=== PATIENT | female | born 1965 | race Caucasian/White ===

== ENCOUNTER 2016-09-29 18:01 | Inpatient (IN) | payer BC ==
--- NOTE | ~2016-09-29 | PN ---
Unit #: [id number] #: [id number] Patient: KYLER JOHN [id number] [facility] [address] [place] [address] [id number] MR#: [id number] NAME: KYLER JOHN ROOM: [facility] Age: 51 Sex: F Admission Date: 09/29/2016 : 1965 Attending Physician: Jose Ramon Catalan M.D. Admitting Physician: Jose Ramon Catalan M.D. Primary Care Physician: Generic Doctor Not In System [facility] PROGRESS NOTES DATE OF SERVICE 10/02/2016 DISCUSSION Ms. Kyler John is a 51-year-old female seen on 10/02/2016. The patient interviewed, chart reviewed. Obtained information from nursing staff. The patient reported that she is not feeling good. Still having a lot of anxiety, restlessness, trouble balancing, severe anxiety, feeling of cold, clammy. The patient reports she was doing better yesterday, but today having problems. Vital Signs: Pulse 104, blood pressure 105/76, afebrile. Complete Review of Systems: Unremarkable. MENTAL STATUS EXAMINATION General Appearance: The patient dressed casually. Attention span, concentration: Fair. Oriented in place and person. Mood and affect labile. Speech: Slow. Thought process: Circumstantial. The patient denied any thoughts of harming self or others but anxious, nervous, withdrawn, isolative, guarded. Reported trouble balancing. Recent and remote memory: Poor. Insight and judgment: Poor. DIAGNOSES 1. Alcohol use disorder, severe. 2. Mood disorder not otherwise specified. ASSESSMENT/PLAN Advised to continue with current detox protocol. Detox monitoring. If needed, consider further adjustment of medication. Continuing with the inpatient programming at this time. Dictated by... Georgette Terrazas/lor TD: 10/04/2016 10:12 JOB #: [id number] Unit #: [id number] #: [id number] Patient: KYLER JOHN PROGRESS NOTES X Jose Ramon Catalan MD X PROGRESS NOTE
--- NOTE | ~2016-09-29 | PN ---
Unit #: [id number] #: [id number] Patient: KYLER JOHN [id number] [facility] [address] [place] [address] [id number] I MR#: [id number] NAME: KYLER JOHN ROOM: [facility] Age: 51 Sex: F Admission Date: 09/29/2016 : 1965 Attending Physician: Jose Ramon Catalan M.D. Admitting Physician: Jose Ramon Catalan M.D. Primary Care Physician: Generic Doctor Not In System [facility] PROGRESS NOTES DATE 10/05/2016. DISCUSSION Ms. Kyler John is a 51-year-old female seen on 10/05/2016. The patient was interviewed and chart reviewed. Obtained information from the nursing staff. The patient reported feeling better. Decrease in anxiety and withdrawal symptoms. The patient is able to eat good. Still isolative and guarded. Complete review of systems unremarkable. MENTAL STATUS EXAMINATION General appearance, the patient is dressed casually. Attention and concentration fair. Oriented to person and place. Mood and affect sad and dysphoric. Speech regular rate. Thought process goal directed. Denied any thoughts of harming self or others. No psychotic symptoms. Recent and remote memory poor. Insight and judgment poor. DIAGNOSES 1. Mood disorder, NOS. 2. Alcohol use disorder, severe. ASSESSMENT/PLAN Advised to continue with current medications and therapy protocol. Make further adjustments of medication if needed. Dictated by... Georgette Terrazas/haleigh TD: 10/06/2016 16:26 JOB #: [id number] Unit #: [id number] #: [id number] Patient: KYLER JOHN [facility] PROGRESS NOTES X Jose Ramon Catalan MD PROGRESS NOTE
--- NOTE | ~2016-09-29 | PN ---
Unit #: [id number] #: [id number] Patient: KYLER JOHN [id number] [facility] [address] [place] [address] [id number] I MR#: [id number] NAME: KYLER JOHN ROOM: [facility] Age: 51 Sex: F Admission Date: 09/29/2016 : 1965 Attending Physician: Jose Ramon Catalan M.D. Admitting Physician: Jose Ramon Catalan M.D. Primary Care Physician: Generic Doctor Not In System [facility] PROGRESS NOTES DATE 10/03/2016 DISCUSSION Ms. Kyler John is a 51-year-old female seen on 10/03/2016. The patient interviewed, chart reviewed; obtained information from nursing staff. Patient currently detoxing from alcohol, still reporting anxious, nervous, hand tremors, some problems with balance. The patient's vital signs are 87, 107/70, 98.8. Complete review of systems unremarkable. MENTAL STATUS EXAMINATION General appearance: Patient dressed casually. Attention span and concentration fair. Oriented in place and person. Mood and affect sad/dysphoric. Speech monotone. Thought processes concrete. The patient denied any thoughts of harming self or others, but sad, depressed, withdrawn, isolative. Recent and remote memory poor. Insight and judgment poor. DIAGNOSIS 1. Alcohol use disorder, severe 2. Mood disorder, NOS ASSESSMENT/PLAN Advised to continue with the current medication and therapy protocol. We will monitor response to medication and make further adjustment of medication. Dictated by... Georgette Terrazas/kendra TD: 10/05/2016 09:21 JOB #: [id number] Unit #: [id number] #: [id number] Patient: KYLER JOHN [facility] PROGRESS NOTES X Jose Ramon Catalan MD PROGRESS NOTE
--- NOTE | ~2016-09-29 | PA ---
Unit #: [id number] #: [id number] Patient: KYLER JOHN [id number] [facility] [address] [place] [address] [id number] I MR#: [id number] NAME: KYLER JOHN ROOM: 76 Age: 51 Sex: F Admission Date: 09/29/2016 : 1965 Date of Assessment: Attending Physician: Jose Ramon Catalan M.D. Admitting Physician: Jose Ramon Catalan M.D. Primary Care Physician: Generic Doctor Not In System PSYCHIATRIC ASSESSMENT DATE OF SERVICE 09/29/2016. INFORMANTS The patient reliability, fair informant and chart reliability, good. CHIEF COMPLAINT Alcohol detox. HISTORY OF PRESENT ILLNESS Ms. Kyler Soni is a 51-year-old female, seen on . The patient presented with the above-mentioned complaint. The patient reported using alcohol almost on a daily basis. The patient lives at home with two sons, 15 and 19. The patient reported feeling sad, depressed, and alcohol use. Reports drinking two glasses of wine this morning and currently going through withdrawal. The patient reports that she typically drinks about two bottles of wine per day. The patient currently denied any suicidal or homicidal ideation, but reported feeling sad and depressed. The patient reports age of onset of alcohol 49. Denied any use of other drugs. The patient reported history of blackout. No history of any HIV or hepatitis, but history of withdrawal symptoms. No history of any IV drug use. Currently, complaining of abdominal cramping, headache, restlessness, tremor, sad, and depressed. PAST PSYCHIATRIC HISTORY Remarkable for history of outpatient treatment for depression. History of treatment inpatient at [facility] in 04/2016. FAMILY HISTORY/SOCIAL HISTORY The patient has good support from family. Family psychiatric illness is unknown, but according to the intake report history of alcoholism on the paternal side of the family. SOCIAL HISTORY No history of any abuse. MEDICAL HISTORY Remarkable for history of hypertension and atrial fibrillation. MEDICATIONS The patient is on Eliquis 5 mg q.12 hours, Effexor XR 150 mg daily, and Toprol-XL 100 mg daily. Unit #: [id number] #: [id number] Patient: KYLER JOHN ALLERGIES No known drug allergies. SUBSTANCE ABUSE HISTORY Please see above. REVIEW OF SYSTEMS HEENT: Eyes, clear. Ears, nose, mouth, and throat; clear. CARDIOVASCULAR: Unremarkable. RESPIRATORY: Unremarkable. GI: Unremarkable. : Unremarkable. SKIN: Unremarkable. LYMPH NODE: Unremarkable. NEUROLOGIC: Unremarkable. ENDOCRINE: Unremarkable. HEMATOLOGIC: Unremarkable. ALLERGIC/IMMUNOLOGIC: Unremarkable. MUSCULOSKELETAL: Muscle strength and tone, no atrophy or abnormal movement. Gait normal. MENTAL STATUS EXAMINATION CONSTITUTIONAL: Measurement of vital signs; temperature 98.7, heart rate 97, respiratory rate 17, blood pressure 130/78, height 5 feet 2 inches, and weight 156 pounds. GENERAL APPEARANCE: The patient dressed casually. The patient did not show any facial deformity. MUSCULOSKELETAL: Please see above. PSYCHIATRIC EXAMINATION Description of speech; regular rate, normal volume, normal articulation, coherent, and spontaneous. Description of thought process, goal directed. Description of association, intact. Description of abnormal psychotic thinking; the patient denied any hallucinations or delusions, but mood lability, depression, and substance abuse. Description of the patient's judgment, concerning everyday activity, poor. Social situation, poor. Concerning psychiatric condition, poor. Complete mental status examination; oriented in time, place, and person. Recent and remote memory, fair. Attention span and concentration, fair. Language, able to name object and repeat phrases. Fund of knowledge, aware of current event and passive vocabulary intact. Mood and affect, sad and dysphoric. Insight and judgment, fair to poor. ASSETS AND LIABILITIES Assets, the patient is articulate and able to take care of her ADL. Liability, history of depression and substance abuse. ADMITTING DIAGNOSES Psychiatric: Alcohol use disorder, severe, F10.20 and mood disorder, not otherwise specified, F32.9. Secondary diagnosis: Deferred. Medical diagnosis: Atrial fibrillation and hypertension. Stressors: Psychosocial stressors. Unit #: [id number] #: [id number] Patient: KYLER JOHN PSYCHIATRIC PLAN AND TREATMENT GOAL AND DISCHARGE PLAN 1. Advised to admit the patient on the inpatient unit. Provide safe, supportive, and structured environment. 2. Ordered labs; CBC, CMP, UA, UDS, T4, TSH, RPR, and EKG. 3. Advised to continue with current medication and detox protocol and detox monitoring. The patient to attend all the programing, group therapy, individual therapy, and medication management. TREATMENT GOAL To attain euthymic mood, gain insight into her problem, and learn coping skills. DISCHARGE PLAN Plan to stabilize the patient and consider followup in outpatient program. ESTIMATED LENGTH OF STAY 5 to 7 days. Dictated by... Georgette Terrazas/nicko TD: 09/30/2016 16:10 JOB #: [id number] PSYCHIATRIC ASSESSMENT X Jose Ramon Catalan MD PSYCHIATRIC ASSESSMENT
--- NOTE | ~2016-09-29 | PN ---
Unit #: [id number] #: [id number] Patient: KYLER JOHN [id number] [facility] [address] [place] [address] [id number] MR#: [id number] NAME: KYLER JOHN ROOM: [facility] Age: 51 Sex: F Admission Date: 09/29/2016 : 1965 Attending Physician: Jose Ramon Catalan M.D. Admitting Physician: Jose Ramon Catalan M.D. Primary Care Physician: Generic Doctor Not In System [facility] PROGRESS NOTES DATE 10/04/2016. DISCUSSION Ms. Kyler John is a 51-year-old female seen on 10/04/2016. The patient was interviewed and chart reviewed. Obtained information form the nursing staff. The patient was compliant and cooperative. Mood sad and dysphoric. The patient reported feeling better. Still having some withdrawal symptoms. Complete review of systems unremarkable. MENTAL STATUS EXAMINATION The patient was dressed casually. Attention and concentration poor. Mood sad and dysphoric. Isolative and guarded. Speech regular rate. Thought process goal directed. The patient denied any thoughts of harming self or others. No psychotic symptoms. Recent and remote memory poor. Insight and judgment poor. DIAGNOSIS Alcohol use disorder, severe. ASSESSMENT/PLAN Continue with current medications and therapy protocol. Will monitor response to medication and make further adjustments in medication. Dictated by... Georgette Terrazas/haleigh TD: 10/06/2016 16:22 JOB #: [id number] [facility] PROGRESS NOTES X Jose Ramon Catalan MD PROGRESS NOTE
--- NOTE | ~2016-09-29 | PN ---
Unit #: [id number] #: [id number] Patient: KYLER JOHN [id number] [facility] [address] [place] [address] [id number] I MR#: [id number] NAME: KYLER JOHN ROOM: [facility] Age: 51 Sex: F Admission Date: 09/29/2016 : 1965 Attending Physician: Jose Ramon Catalan M.D. Admitting Physician: Jose Ramon Catalan M.D. Primary Care Physician: Aracely Doctor Not In System [facility] PROGRESS NOTES DATE OF SERVICE: 10/06/2016 DISCUSSION Ms. Kyler John is a 51-year-old female, seen on 10/06/2016. The patient interviewed, chart reviewed, and obtained information from nursing staff. The patient was scheduled to be discharged today, but reported that having suicidal thoughts. The patient was unable to contract for safety. Subsequently, her discharge was canceled as the patient was unable to contract for safety. The patient reported feeling sad, depressed, and anxious. Denied any specific plan. Vital signs stable. Compliant with medication. Complete review of systems unremarkable. MENTAL STATUS EXAMINATION General appearance, the patient dressed casually. Attention span and concentration, fair. Oriented in place and person. Mood and affect, sad and dysphoric. Speech, regular rate. Thought process, goal directed. The patient denied any thoughts of harming others, but having suicidal thoughts. Unable to contract for safety. Recent and remote memory, poor. Insight and judgment, poor. DIAGNOSES 1. Mood disorder, not otherwise specified. 2. Alcohol use disorder, severe. ASSESSMENT AND PLAN Advised to continue with current medication and therapeutic protocol. We will monitor response to medication and make further adjustment of medication. Dictated by... Georgette Terrazas/nicko TD: 10/07/2016 12:16 JOB #: [id number] Unit #: [id number] #: [id number] Patient: KYLER JOHN PROGRESS NOTES X Jose Ramon Catalan MD PROGRESS NOTE
--- NOTE | ~2016-09-29 | HP ---
Unit #: [id number] #: [id number] Patient: KYLER JOHN [id number] [place] [address] [id number] I MR#: [id number] NAME: KYLER JOHN ROOM: [facility] Age: 51 Sex: F Admission Date: 09/29/2016 : 1965 Attending Physician: Jose Ramon Catalan M.D. Admitting Physician: Jose Ramon Catalan M.D. Primary Care Physician: Generic Doctor Not In System HISTORY AND PHYSICAL HISTORY OF PRESENT ILLNESS Kyler is a 51-year-old female admitted to [facility] because of her abuse of alcohol. She is detoxing. PAST MEDICAL HISTORY 1. Long history of alcohol abuse. 2. High blood pressure. 3. History of atrial fibrillation. PAST SURGICAL HISTORY 1. Gastric bypass. 2. Hysterectomy. 3. Cholecystectomy. ALLERGIES Penicillin, lisinopril, Ceclor. SOCIAL HISTORY She does not smoke, drinks excessively on a daily basis, and denies illicit drug use. FAMILY HISTORY Medically noncontributory. REVIEW OF SYSTEMS CONSTITUTIONAL: No fever or chills. HEENT: Denies any sore throat, ear pain or runny nose. CARDIOVASCULAR: Denies chest pain, irregular heart rhythm or palpitations. CHEST: Denies shortness of breath or cough. No hemoptysis. GASTROINTESTINAL: Denies nausea, vomiting, diarrhea or chronic constipation. ENDOCRINE: Denies history of increased thirst or urination. No recent significant weight loss or gain. GENITOURINARY: Denies dysuria, frequency, or hematuria. SKIN: Denies any rashes. HEMATOLOGIC: Denies history of increased bleeding or bruising. MUSCULOSKELETAL: Denies any hot, swollen joints. No generalized muscle pain. NEUROLOGIC: Denies problems with vision or speech. No frequent, severe headaches. No numbness, tingling or weakness in any extremities. Denies loss of bladder or bowel control. CURRENT MEDICATIONS Unit #: [id number] #: [id number] Patient: KYLER JOHN 1. Detox protocol. 2. Eliquis 5 mg q. 12 hours. 3. Effexor XR 150 mg q. day. 4. Toprol XL 50 mg 2 tabs q. day. PHYSICAL EXAMINATION GENERAL: Alert, well nourished. No apparent distress. VITAL SIGNS: Blood pressure 100/64, heart rate 80, respirations 16, and temperature 98.6. WEIGHT: 166. HEIGHT: 5 feet 2 inches. SKIN: Warm and dry without rash or lesion. HEENT: Normocephalic. TMs not viewed. Oral and nasal passages clear. Conjunctivae clear. PERRLA. EOMs intact. NECK: Supple without lymphadenopathy or thyromegaly. HEART: Regular rate and rhythm without murmur. LUNGS: Clear. ABDOMEN: Soft, nontender. : Not done. EXTREMITIES: No evidence of cyanosis, clubbing or edema. Moves all without focal deficit. NEUROLOGICAL: Grossly within normal limits. Cranial Nerves: II: Visual scanlon are intact. III, IV AND : Extraocular movements are intact. Pupils are equal, round and reactive to light. V: Facial sensation is grossly normal. VII: Facial movements and expression are normal. VIII: Auditory acuity grossly intact. IX, X: Uvula is midline. Phonation is normal. XI: Patient shrugs shoulders and turns head normally. XII: Tongue protrudes in the midline. Sensory and Motor Function: Sensory and motor sensation is grossly normal. Motor: moves all extremities well. Coordination: Gait is normal. Deep Tendon Reflexes: Intact. IMPRESSION Psychiatric admission. RECOMMENDATIONS PSYCHIATRIC: Per psychiatrist. MEDICAL: I see no contraindication to participate in this facility's activities. MEDICAL PROGNOSIS Good. MEDICAL CONDITION Stable. Dictated by... Aide Baugh P.A.-C. for Georgette Butler/lor TD: 10/01/2016 12:01 JOB #: [id number] Unit #: [id number] #: [id number] Patient: KYLER JOHN HISTORY AND PHYSICAL X Aide Baugh HISTORY AND PHYSICAL
--- NOTE | ~2016-09-29 | PN ---
Unit #: [id number] #: [id number] Patient: KYLER JOHN [id number] [facility] [address] [place] [address] [id number] I MR#: [id number] NAME: KYLER JOHN ROOM: [facility] Age: 51 Sex: F Admission Date: 09/29/2016 : 1965 Attending Physician: Jose Ramon Catalan M.D. Admitting Physician: Jose Ramon Catalan M.D. Primary Care Physician: Generic Doctor Not In System [facility] PROGRESS NOTES DATE OF SERVICE: 09/30/2016 DISCUSSION Ms. Kyler Soni is a 51-year-old female, seen on 09/30/2016. The patient interviewed, chart reviewed, and obtained information from nursing staff. The patient was compliant and cooperative. Mood was sad, dysphoric, flat affect. The patient was somewhat anxious, nervous, having withdrawal symptom. Vital signs; temperature 98.6, pulse 95, respirations 17, and blood pressure 127/89. Complete review of systems unremarkable. MENTAL STATUS EXAMINATION General appearance, the patient dressed casually. Attention span and concentration, fair. Oriented in place and person. Mood and affect, sad and dysphoric. Speech, monotone. Thought process, concrete. The patient denied any thoughts of harming self or others or any psychotic symptom. Recent and remote memory, poor. Insight and judgment, poor. DIAGNOSES 1. Alcohol use disorder, severe. 2. Mood disorder, not otherwise specified. ASSESSMENT AND PLAN Advised to continue with current medication and therapeutic protocol. We will monitor response to medication and make further adjustment of medication and continue with detox protocol. Dictated by... Georgette Terrazas/nicko TD: 10/01/2016 16:38 JOB #: [id number] Unit #: [id number] #: [id number] Patient: KYLER JOHN PROGRESS NOTES X Jose Ramon Catalan MD PROGRESS NOTE
--- NOTE | ~2016-09-29 | PN ---
Unit #: [id number] #: [id number] Patient: KYLER JOHN [id number] [facility] [address] [place] [address] [id number] I MR#: [id number] NAME: KYLER JOHN ROOM: [facility] Age: 51 Sex: F Admission Date: 09/29/2016 : 1965 Attending Physician: Jose Ramon Catalan M.D. Admitting Physician: Jose Ramon Catalan M.D. Primary Care Physician: Generic Doctor Not In System [facility] PROGRESS NOTES DATE 10/01/2016 DISCUSSION Ms. John is a 51-year-old female seen on 10/01/2016. The patient continues to report feeling anxious, nervous, withdrawn, tremors, having withdrawal symptoms from alcohol. The patient's vital signs high, pulse 96, blood pressure 160/84. Complete review of systems unremarkable. MENTAL STATUS EXAMINATION General appearance, the patient dressed casually. Attention span and concentration fair. Oriented to place and person. Mood and affect was sad, dysphoric, anxious. Speech regular rate. Thought process goal directed. The patient denied any thoughts of harming self or others. Was sad, depressed, withdrawn, isolative, guarded. Recent and remote memory poor. Insight and judgement poor. DIAGNOSES 1. Alcohol use disorder severe. 2. Mood disorder NOS. ASSESSMENT/PLAN Advise to continue with current medication and therapeutic protocol. We will monitor response to medication and make further adjustment of medication. Dictated by... Georgette Terrazas/dex TD: 10/03/2016 01:05 JOB #: [id number] Unit #: [id number] #: [id number] Patient: KYLER JOHN PROGRESS NOTES X Jose Ramon Catalan MD PROGRESS NOTE
--- NOTE | ~2016-09-29 | DS ---
Unit #: [id number] #: [id number] Patient: KYLER JOHN [id number] [place] [address] [id number] I MR#: [id number] NAME: KYLER JOHN ROOM: [facility] Age: 51 Sex: F Admission Date: 09/29/2016 : 1965 Discharge Date: 10/08/2016 Attending Physician: Jose Ramon Catalan M.D. Primary Care Physician: Generic Doctor Not In System DISCHARGE SUMMARY REASON FOR ADMISSION Alcohol detox and depression. DIAGNOSTIC STUDIES LABORATORY RESULTS: Unremarkable except glucose 65, AST 74, and ALT 41. HOSPITAL COURSE The patient was admitted to inpatient unit on 09/29/2016 and discharged on 10/08/2016. The patient was treated on the inpatient unit with group therapy, individual therapy, medication management, chemical dependency group, detox protocol, and detox monitoring. Subsequently, the patient was discharged home with a plan to follow up in outpatient program as the patient showed improvement. The patient had problem with depression close to discharge and Celexa was added, responded well with Celexa and Vistaril. Subsequently, the patient was discharged. DISCHARGE MEDICATIONS Celexa 20 mg daily for depression and Vistaril 25 mg t.i.d. for anxiety. The patient is to continue with her medications; Toprol-XL for hypertension, Effexor XR 150 mg daily for depression, and Eliquis to prevent blood clots. DISCHARGE DIAGNOSES Psychiatric: 1. Alcohol use disorder, severe, F10.20. 2. Mood disorder, not otherwise specified, F32.9. Secondary diagnosis: Deferred. Medical diagnoses: Atrial fibrillation, hypertension. Stressors: Psychosocial stressors. DISCHARGE INSTRUCTIONS The patient is to follow up in outpatient clinic as per socially responsible investment adviser. CONDITION ON DISCHARGE The patient was pleasant and cooperative. Denied any psychotic symptom or any suicidal ideation. PROGNOSIS Guarded. DIET AND ACTIVITY Unit #: [id number] #: [id number] Patient: KYLER JOHN As tolerated. Dictated by... Jose Ramon Catalan M.D. CHANCE/nicko TD: 10/08/2016 22:09 JOB #: [id number] DISCHARGE SUMMARY X Jose Ramon Catalan MD DISCHARGE SUMMARY
[2016-09-30 09:51] LABS: BASOPHIL% 0.8 % (0-2.5); EOSINOPHIL# 0.1 X10e3 (0-0.7); EOSINOPHIL% 1.7 % (0.0-7.0); HEMATOCRIT 38.1 % (35.0-45.0); HEMOGLOBIN 12.6 gm/dL (12.0-16.0); LYMPHOCYTE# 1.4 X10e3 (1.0-3.5); LYMPHOCYTE% 37.2 % (17.0-45.0); MEAN CELL VOLUME 93.4 FL (83-96); MEAN CORPUSCULAR HEMOGLOBIN 30.8 PG (28-34); MEAN PLATELET VOLUME 9.5 FL (6.5-11.5); MONOCYTE# 0.3 X10e3 (0-1.0); MONOCYTE% 8.9 % (3.0-12.0); NEUTROPHIL% 51.4 % (40-75); PLATELET COUNT 107 X10e3 (140-420); RED BLOOD COUNT 4.08 X10e (3.90-5.30); RED CELL DISTRIBUTION WIDTH 17.6 % (11.0-15.5); WHITE BLOOD COUNT 3.9 X10e3 (4.0-10.5)
[2016-09-30 09:55] LABS: DIFF IND NO
[2016-09-30 10:11] LABS: THYROID STIMULATING HORMONE 1.72 uIU/ml (0.34-5.60)
[2016-09-30 10:15] LABS: ALBUMIN SERUM 3.6 g/dL (3.5-5.0); ALKALINE PHOSPHATASE 106 U/L (32-92); ALT (SGPT) 41 U/L (10-40); AST (SGOT) 74 U/L (10-42); BLOOD UREA NITROGEN 10 mg/dL (9-23); CARBON DIOXIDE 29 mmol/L (22-31); CHLORIDE 100 mmol/L (100-111); CREATININE SERUM 0.8 mg/dL (0.6-1.4); GLOM FILT RATE Estimated ABOVE60 mL/min (>60); GLUCOSE FASTING 65 mg/dL (70-110); POTASSIUM 3.8 mmol/L (3.5-5.1); PROTEIN TOTAL SERUM 6.4 g/dL (6.0-8.3); SODIUM 140 mmol/L (135-145)
[2016-09-30 10:21] LABS: FREE THYROXIN (T4) 0.87 ng/dL (0.58-1.64)
[2016-10-01 09:59] LABS: URINE APPEARANCE CLEAR; URINE BILIRUBIN NEG (NEG); URINE BLOOD NEG (NEG); URINE COLOR DK YELLOW; URINE GLUCOSE NEG (NEG); URINE KETONE TRACE (NEG); URINE LEUKOCYTE ESTERASE 3+ (NEG); URINE NITRATE NEG (NEG); URINE PROTEIN NEG (NEG); URINE SPECIFIC GRAVITY 1.017 (1.003-1.035)
[2016-10-01 10:01] LABS: URINE BACTERIA AUWI NEG (NEGATIVE); URINE SQUAMOUS EPITHELIAL CELL OCC /[HPF]
[2016-10-01 10:05] LABS: AMPHETAMINE NEG (NEG); BARBITURATES NEG (NEG); BENZODIAZEPINES POS (NEG); COCAINE NEG (NEG); MARIJUANA NEG (NEG); OPIATES NEG (NEG); TRICYCLIC ANTIDEPRESSANTS NEG (NEG); U METHADONE NEG (NEG)
== END 2016-10-08 11:57 | disposition home or self-care (01) | DRG 897 ==
LOC: P1E 18:01
PROVIDERS: Psychiatry & Neurology Psychiatry
PROC: HZ2ZZZZ Detoxification Services for Substance Abuse Treatment (ICD-10-PCS; principal; 2016-09-29)
DX: F10.20 Alcohol dependence, uncomplicated (principal); I48.91 Unspecified atrial fibrillation; I10 Essential (primary) hypertension; F39 Unspecified mood [affective] disorder; Z88.0 Allergy status to penicillin
CPT/HCPCS: 80053; 80307; 81003; 84439; 84443; 85025; 86592; J2550

== ENCOUNTER 2016-10-08 21:38 | Inpatient (IN) | payer OTHER ==
--- NOTE | ~2016-10-08 | DS ---
Unit #: [id number] #: [id number] Patient: KYLER JOHN [id number] [facility] [address] [place] [address] [id number] I MR#: [id number] NAME: KYLER JOHN ROOM: [facility] Age: 51 Sex: F Admission Date: 10/08/2016 : 1965 Discharge Date: 10/10/2016 Attending Physician: Jose Ramon Catalan M.D. Primary Care Physician: Primary Care Physician No DISCHARGE SUMMARY REASON FOR ADMISSION Depression and suicidal ideation. DIAGNOSTIC STUDIES LABORATORY RESULTS: None. HOSPITAL COURSE The patient was admitted to inpatient unit on 10/08/2016 after the patient was discharged recently. The patient returned on the same day. The patient reports that she is feeling anxious and nervous. The patient reported suicidal ideation, but able to maintain safe behavior. The patient was anxious about going to go home. The patient was able to maintain safe behavior on the unit. Subsequently, the patient was discharged with a plan to follow up in outpatient program. The patient wanted to go to a 30-day rehab program. DISCHARGE MEDICATIONS Eliquis 5 mg once daily for blood clots, Lopressor 100 mg daily for hypertension, Celexa 20 mg daily for depression, Vistaril 25 mg t.i.d. for anxiety, Effexor XR 150 mg daily for depression, Desyrel 75 mg daily for sleep, multivitamin 1 tablet daily supplement, Multaq 400 mg b.i.d. supplement. DISCHARGE DIAGNOSES Psychiatric: Alcohol use disorder, severe, F10.20; mood disorder, not otherwise specified, F32.9, rule out major depressive disorder, recurrent. Secondary diagnosis: Deferred. Medical diagnosis: Atrial fibrillation, hypertension. Stressors: Psychosocial stressor. DISCHARGE INSTRUCTIONS The patient to follow up in outpatient clinic as per social media senior associate. CONDITION ON DISCHARGE The patient was pleasant and cooperative, denied any psychotic symptom or any suicidal ideation. PROGNOSIS Guarded. Unit #: [id number] #: [id number] Patient: KYLER JOHN DIET AND ACTIVITY As tolerated. Dictated by... Jose Ramon Catalan M.D. SZC/manfredl TD: 10/12/2016 02:00 JOB #: [id number] DISCHARGE SUMMARY X Jose Ramon Catalan MD X DISCHARGE SUMMARY
--- NOTE | ~2016-10-08 | HP ---
Unit #: [id number] #: [id number] Patient: KYLER JOHN [id number] [facility] [address] [place] [address] [id number] MR#: [id number] NAME: KYLER JONH ROOM: [facility] Age: 51 Sex: F Admission Date: 10/08/2016 : 1965 Attending Physician: Jose Ramon Catalan M.D. Admitting Physician: Jose Ramon Catalan M.D. Primary Care Physician: Primary Care Physician No HISTORY AND PHYSICAL HISTORY OF PRESENT ILLNESS Kyler is a 51-year-old female admitted [facility] on 10/08/2016 for suicidal ideation and depression. She had a recent admission on 09/29/2016 for detox from alcohol and suicidal ideation. I reviewed the history and physical from that admission and there are no changes. Dictated by..Parish Porter TD: 10/09/2016 19:58 JOB #: [id number] HISTORY AND PHYSICAL X LAZARA HOWARD APRN HISTORY AND PHYSICAL
--- NOTE | ~2016-10-08 | PA ---
Unit #: [id number] #: [id number] Patient: KYLER JOHN [id number] [facility] [address] [place] [address] [id number] I MR#: [id number] NAME: KYLER JOHN ROOM: [facility] Age: 51 Sex: F Admission Date: 10/08/2016 : 1965 Date of Assessment: 10/09/2016 Attending Physician: Jose Ramon Catalan M.D. Admitting Physician: Jose Ramon Catalan M.D. Primary Care Physician: Primary Care Physician No PSYCHIATRIC ASSESSMENT DATE OF SERVICE 10/09/2016. INFORMANTS The patient reliability, fair informant and chart reliability, good. CHIEF COMPLAINT Depression and suicidal ideation. HISTORY OF PRESENT ILLNESS Ms. Ashanti Yates is a 51-year-old female. The patient was discharged yesterday and readmitted as she reported that she was not able to contract for safety and having thoughts of hurting herself and having suicidal thoughts and has been drinking alcohol. The patient was discharged in the morning and came back in the evening. The patient reported having suicidal thoughts on Thursday morning while being inpatient in [facility]. The patient reported today she got home and began having thoughts of harming herself. The patient reported that she had thoughts to take some of her father's leftover prescription medication with alcohol. The patient reports today she drank 4 glasses of wine. The patient reports that she drank out of red Solo cup and 3/4th full today, the patient had 4 glasses of that. The patient needed inpatient admission for psychiatric stabilization. PAST PSYCHIATRIC HISTORY Remarkable for history of inpatient treatment at [facility]; recently, the patient was inpatient from 09/29/2016 to 10/08/2016. FAMILY HISTORY AND SOCIAL HISTORY The patient has good support from family. Family psychiatric illness is unknown. No history of alcohol problem on paternal side of the family. No history of any abuse. MEDICAL HISTORY Remarkable for history of hypertension and atrial fibrillation. MEDICATION HISTORY The patient is on Eliquis, Effexor, Toprol, Celexa, and Vistaril. ALLERGIES No known drug allergies. Unit #: [id number] #: [id number] Patient: KYLER JOHN SUBSTANCE ABUSE HISTORY Please see above. REVIEW OF SYSTEMS HEENT: Eyes, clear. Ears, nose, mouth, and throat; clear. CARDIOVASCULAR: Unremarkable. RESPIRATORY: Unremarkable. GI: Unremarkable. : Unremarkable. SKIN: Unremarkable. LYMPH NODE: Unremarkable. NEUROLOGIC: Unremarkable. ENDOCRINE: Unremarkable. HEMATOLOGIC: Unremarkable. ALLERGIC/IMMUNOLOGIC: Unremarkable. MUSCULOSKELETAL: Muscle strength and tone, no atrophy or abnormal movement. Gait normal. MENTAL STATUS EXAMINATION CONSTITUTIONAL: Measurement of vital signs; temperature 98.4, pulse rate 80, respiratory rate 18, and blood pressure 130/80. GENERAL APPEARANCE: The patient dressed casually. The patient did not show any facial deformity. MUSCULOSKELETAL: Please see above. PSYCHIATRIC EXAMINATION Description of speech, regular rate and normal volume. Description of thought process, goal directed. Description of association, intact. Description of abnormal psychotic thinking, the patient denied any psychotic symptom, but suicidal ideation, mood lability, and substance abuse. Description of the patient's judgment, concerning everyday activity, poor. Social situation, poor. Concerning psychiatric condition, poor. Complete mental status examination; oriented in time, place, and person. Attention span and concentration, fair. Language, able to name object and repeat phrases. Fund of knowledge, aware of current event and passive vocabulary intact. Mood and affect, sad and dysphoric. Insight and judgment, fair to poor. ASSETS AND LIABILITIES Assets, the patient is articulate and able to take care of her ADL. Liability, history of depression and substance abuse. ADMITTING DIAGNOSES Psychiatric: Major depressive disorder, recurrent, severe, F33.2 and alcohol use disorder, severe, F10.20. Secondary diagnosis: Deferred. Medical diagnoses: Atrial fibrillation and hypertension. Stressors: Psychosocial stressors. PSYCHIATRIC PLAN AND TREATMENT GOAL AND DISCHARGE PLAN 1. Advised to admit the patient on the inpatient unit. Provide safe, supportive, and structured environment. 2. Advised to continue with current medication and monitor the patient's Unit #: [id number] #: [id number] Patient: KYLER JOHN mood and behavior. SC1 precaution. The patient to participate in all the programing and planned to keep her stay short as possible, stabilize, and consider outpatient program. TREATMENT GOAL To attain euthymic mood, gain insight into her problem, and learn coping skills. DISCHARGE PLAN Plan to stabilize the patient and consider followup in outpatient program. ESTIMATED LENGTH OF STAY 3 to 5 days. Dictated by... Georgette Terrazas TD: 10/09/2016 15:12 JOB #: [id number] PSYCHIATRIC ASSESSMENT X Jose Ramon Catalan MD PSYCHIATRIC ASSESSMENT
--- NOTE | ~2016-10-08 | PN ---
Unit #: [id number] #: [id number] Patient: TYESHA JOHN [id number] [facility] [address] [place] [address] [id number] MR#: [id number] NAME: TYESHA JOHN ROOM: [facility] Age: 51 Sex: F Admission Date: 10/08/2016 : 1965 Attending Physician: Jose Ramon Catalan M.D. Admitting Physician: Jose Ramon Catalan M.D. Primary Care Physician: Primary Care Physician Radha GARCIA NOTES DATE OF SERVICE 10/07/2016 DISCUSSION Tyesha John is a 51-year-old female seen on 10/07/2016. The patient was unable to contract for safety. Still reporting anxious about going home. Sad, depressed. Unable to contract for safety. Currently on Effexor and trazodone combination. The patient reported anxiety. Complete Review of Systems: Unremarkable. MENTAL STATUS EXAMINATION General Appearance: The patient dressed casually. Attention span, concentration: Fair. Oriented in place and person. Mood and affect: Sad, dysphoric. Speech: Regular rate. Thought process: Goal-directed. Association: The patient reported having suicidal ideation. Unable to contract for safety. Guarded. Recent and remote memory: Poor. Insight and judgment: Poor. DIAGNOSES 1. Mood disorder not otherwise specified. 2. Alcohol use disorder, severe. ASSESSMENT/PLAN Advised to continue with current medication and therapeutic protocol. We will monitor response to medication and make further adjustment of medication with adding Restoril 25 mg 3 times a day and Celexa 20 mg at bedtime. Dictated by... Georgette Terrazas/lor TD: 10/09/2016 07:50 JOB #: [id number] Unit #: [id number] #: [id number] Patient: TYESHA JOHN MARIOANA PROGRESS NOTES X Jose Ramon Catalan MD PROGRESS NOTE
== END 2016-10-10 15:30 | disposition home or self-care (01) | DRG 885 ==
LOC: P1E 21:38 → P1S 10-09 14:24
DX: F33.2 Major depressive disorder, recurrent severe without psychotic features (principal); I48.91 Unspecified atrial fibrillation; R45.851 Suicidal ideations; F10.20 Alcohol dependence, uncomplicated; I10 Essential (primary) hypertension; F41.9 Anxiety disorder, unspecified

== ENCOUNTER 2017-02-21 22:00 | Inpatient (IN) | payer OTHER ==
[~2017-02-21] VITALS: Ht 167.6 cm; Wt 81.6 kg
--- NOTE | ~2017-02-21 | PN ---
Unit #: [id number] #: [id number] Patient: KYLER JOHN [id number] [facility] [address] [place] [address] [id number] MR#: [id number] NAME: KYLER JOHN. ROOM: [facility] Age: 51 Sex: F Admission Date: 02/22/2017 : 1965 Attending Physician: Jose Ramon Catalan M.D. Admitting Physician: Jose Ramon Catalan M.D. Primary Care Physician: Generic Doctor Not In System [facility] PROGRESS NOTES DATE OF SERVICE: 02/26/2017 DISCUSSION Kyler Yates is a 51-year-old female, seen on 02/26/2017. The patient interviewed, chart reviewed, and obtained information from nursing staff. The patient was compliant and cooperative. Mood is sad and dysphoric, but able to maintain safe behavior, able to participate in programming. The patient looking forward to follow up on the outpatient basis after discharge, but still somewhat anxious and nervous. Complete review of systems unremarkable. MENTAL STATUS EXAMINATION General appearance, the patient dressed casually. Attention span and concentration, fair. Oriented in time, place, and person. Mood and affect, labile. Speech, regular rate. Thought process, goal directed. The patient denied any thoughts of harming self or others. Recent and remote memory, poor. Insight and judgment, poor. DIAGNOSES 1. Alcohol use disorder, severe. 2. Mood disorder, not otherwise specified. ASSESSMENT AND PLAN Advised to continue with current medication and therapeutic protocol. If needed, consider further adjustment of medication. Dictated by... Georgette Terrazas/nicko TD: 02/26/2017 17:43 JOB #: [id number] Unit #: [id number] #: [id number] Patient: KYLER JOHN [facility] PROGRESS NOTES Page 1 of 1 X Jose Ramon Catalan MD X PROGRESS NOTE
--- NOTE | ~2017-02-21 | PN ---
Unit #: [id number] #: [id number] Patient: KYLER JOHN [id number] [facility] [address] [place] [address] [id number] MR#: [id number] NAME: KYLER JOHN. ROOM: [facility] Age: 51 Sex: F Admission Date: 02/22/2017 : 1965 Attending Physician: Jose Ramon Catalan M.D. Admitting Physician: Jose Ramon Catalan M.D. Primary Care Physician: Generic Doctor Not In System [facility] PROGRESS NOTES DATE 02/23/2017 DISCUSSION Ms. Kyler John is a 51-year-old female seen on 02/23/2017. The patient interviewed, chart reviewed. Obtained information from nursing staff. The patient was compliant and cooperative. Reports making progress. Still sad, depressed, anxious, reported having some withdrawal symptoms from alcohol. The patient denied any other complaints. Complete review of systems unremarkable. MENTAL STATUS EXAMINATION The patient's vital signs are 97.6, 66, 115/77. General appearance, the patient dressed in hospital attire. Attention span and concentration fair. Oriented to place and person. Mood and affect labile. Speech monotone. Thought process concrete. The patient denied any thoughts of harming self or others but somewhat guarded. Recent and remote memory poor. Insight and judgement poor. DIAGNOSES 1. Alcohol use disorder severe. 2. Mood disorder NOS. ASSESSMENT/PLAN Advise to continue with current medication and therapeutic protocol. If needed consider further adjustment of medication. Dictated by... Georgette Terrazas/dex TD: 02/25/2017 00:06 JOB #: [id number] Unit #: [id number] #: [id number] Patient: KYLER JOHN [facility] PROGRESS NOTES Page 1 of 1 X Jose Ramon Catalan MD X PROGRESS NOTE
--- NOTE | ~2017-02-21 | DS ---
Unit #: [id number] #: [id number] Patient: KYLER JOHN [id number] [facility] [address] [place] [address] [id number] I MR#: [id number] NAME: KYLER JOHN. ROOM: [facility] Age: 51 Sex: F Admission Date: 02/22/2017 : 1965 Discharge Date: 02/27/2017 Attending Physician: Jose Ramon Catalan M.D. Primary Care Physician: Generic Doctor Not In System DISCHARGE SUMMARY REASON FOR ADMISSION Depression, alcohol abuse. HISTORY OF PRESENT ILLNESS Ms. Kyler John is a 51-year-old female, admitted on 02/22/2017 and discharged on 02/27/2017. The patient was treated with detox protocol, chemical dependency group, structured milieu, psychoeducation, and medication management. The patient was responsive to treatment. Subsequently, the patient was discharged to follow up in outpatient program. DISCHARGE MEDICATIONS Metoprolol 100 mg once daily for hypertension, BuSpar 10 mg b.i.d. for anxiety, Effexor XR 300 mg in the morning for depression, Celexa 20 mg daily for depression, and Vistaril 25 mg t.i.d. for anxiety. DISCHARGE DIAGNOSES Psychiatric: Major depressive disorder, recurrent, severe, F33.2; alcohol use disorder, severe, F10.20. Secondary diagnosis: Deferred. Medical diagnosis: History of atrial fibrillation, hypertension. Stressors: Psychosocial stressors. DISCHARGE INSTRUCTIONS The patient to follow up in outpatient clinic as per social worker psychiatric. CONDITION ON DISCHARGE The patient was pleasant and cooperative. Denied any psychotic symptom or any suicidal ideation. PROGNOSIS Guarded. DIET AND ACTIVITY As tolerated. Dictated by... Jose Ramon Catalan M.D. Unit #: [id number] #: [id number] Patient: KYLER JOHN SZC/modl TD: 02/27/2017 20:39 JOB #: [id number] DISCHARGE SUMMARY Page 1 of 1 X Jose Ramon Catalan MD X DISCHARGE SUMMARY
--- NOTE | ~2017-02-21 | PN ---
Unit #: [id number] #: [id number] Patient: KYLER JOHN [id number] [facility] [address] [place] [address] [id number] MR#: [id number] NAME: KYLER JOHN. ROOM: [facility] Age: 51 Sex: F Admission Date: 02/22/2017 : 1965 Attending Physician: Jose Ramon Catalan M.D. Admitting Physician: Jose Ramon Catalan M.D. Primary Care Physician: Generic Doctor Not In System [facility] PROGRESS NOTES DATE 02/25/2017 DISCUSSION Ms. Kyler John is a 51-year-old female. The patient interviewed, chart reviewed, and obtained information from the nursing staff. The patient reports feeling better, decrease in anxiety. The patient reported that she will be going to a rehab tolerating medication fairly well, no side effects from medication. The patient's vital signs, 98.8, 74, 112/80 REVIEW OF SYSTEMS Complete review of systems unremarkable. MENTAL STATUS EXAMINATION General appearance: Patient dressed casually. Attention span and concentration, fair. Oriented in time, place, and person. Mood and affect, sad, dysphoric, flat affect. Speech, monotone. Thought process, concrete. The patient denied any thoughts of harming self or others but still reporting feeling sad, depressed, withdrawn, isolative. Recent and remote memory, poor. Insight and judgment, poor. DIAGNOSES 1. Major depressive disorder, recurrent, severe. 2. Alcohol use disorder, severe. ASSESSMENT/PLAN Advised to continue with the current medication and therapeutic protocol, and if needed consider further adjustment of medication. Dictated by... Georgette Terrazas/emily TD: 02/26/2017 11:31 JOB #: [id number] Unit #: [id number] #: [id number] Patient: KYLER JOHN [facility] PROGRESS NOTES Page 1 of 1 X Jose Ramon Catalan MD PROGRESS NOTE
--- NOTE | ~2017-02-21 | HP ---
Unit #: [id number] #: [id number] Patient: KYLER JOHN [id number] [place] [address] [id number] I MR#: [id number] NAME: KYLER JOHN. ROOM: [facility] Age: 51 Sex: F Admission Date: 02/22/2017 : 1965 Attending Physician: Jose Ramon Catalan M.D. Admitting Physician: Jose Ramon Catalan M.D. Primary Care Physician: Generic Doctor Not In System HISTORY AND PHYSICAL HISTORY OF PRESENT ILLNESS The patient is a 51-year-old female admitted to [address] [place] [address] on 02/22/2017 to detox from alcohol. PAST MEDICAL HISTORY 1. Alcohol abuse 2. Hypertension 3. History of atrial fibrillation PAST SURGICAL HISTORY 1. Gastric bypass 2. Hysterectomy 3. Cholecystectomy SOCIAL HISTORY She is retired. She is homeless. She drinks two bottles two bottles of wine per night. FAMILY MEDICAL HISTORY Noncontributory. ALLERGIES Penicillin, alina inhibitors, Ceclor and sulfa. CURRENT MEDICATIONS 1. Metroprolol 2. BuSpar 3. Effexor REVIEW OF SYSTEMS CONSTITUTIONAL: No fever or chills. HEENT: Denies any sore throat, ear pain or runny nose. CARDIOVASCULAR: Denies chest pain, irregular heart rhythm or palpitations. CHEST: Denies shortness of breath or cough. No hemoptysis. GASTROINTESTINAL: Denies nausea, vomiting, diarrhea or chronic constipation. ENDOCRINE: Denies history of increased thirst or urination. No recent significant weight loss or gain. GENITOURINARY: Denies dysuria, frequency, or hematuria. SKIN: Denies any rashes. HEMATOLOGIC: Denies history of increased bleeding or bruising. MUSCULOSKELETAL: Denies any hot, swollen joints. No generalized muscle pain. Unit #: [id number] #: [id number] Patient: KYLER JOHN NEUROLOGIC: Denies problems with vision or speech. No frequent, severe headaches. No numbness, tingling or weakness in any extremities. Denies loss of bladder or bowel control. PHYSICAL EXAM GENERAL: She is awake, alert and oriented in no acute distress. VITAL SIGNS: Temperature 98.4, heart rate 88, respiration 18, blood pressure 110/76. HEIGHT: 5'6". WEIGHT: 180 pounds. SKIN: Warm and dry without rash or lesion. HEENT: Normocephalic. TMs not viewed. Oral and nasal passages clear. Conjunctivae clear. PERRLA. EOMs intact. NECK: Supple without lymphadenopathy or thyromegaly. HEART: Regular rate and rhythm without murmur. LUNGS: Clear. ABDOMEN: Soft, nontender. : Not done. EXTREMITIES: No evidence of cyanosis, clubbing or edema. Moves all without focal deficit. NEUROLOGICAL: Grossly within normal limits. Cranial Nerves: II: Visual scanlon are intact. III, IV AND : Extraocular movements are intact. Pupils are equal, round and reactive to light. V: Facial sensation is grossly normal. VII: Facial movements and expression are normal. VIII: Auditory acuity grossly intact. IX, X: Uvula is midline. Phonation is normal. XI: Patient shrugs shoulders and turns head normally. XII: Tongue protrudes in the midline. Sensory and Motor Function: Sensory and motor sensation is grossly normal. Motor: moves all extremities well. IMPRESSION 1. Psychiatric admission. 2. Alcohol abuse. 3. Hypertension. 4. History of A-fib. RECOMMENDATIONS Psychiatric per psychiatrist. MEDICAL: No contraindication to participate in facility activities. MEDICAL PROGNOSIS Good. MEDICAL CONDITION Stable. Dictated by... Parish Fowler/dex Unit #: [id number] #: [id number] Patient: KYLER JOHN TD: 02/23/2017 01:28 JOB #: [id number] HISTORY AND PHYSICAL Page 1 of 1 X CANDACE LIU APRN HISTORY AND PHYSICAL
--- NOTE | ~2017-02-21 | PN ---
Unit #: [id number] #: [id number] Patient: KYLER JOHN [id number] [facility] [address] [place] [address] [id number] I MR#: [id number] NAME: KYLER JOHN. ROOM: [facility] Age: 51 Sex: F Admission Date: 02/22/2017 : 1965 Attending Physician: Jose Ramon Catalan M.D. Admitting Physician: Jose Ramon Catalan M.D. Primary Care Physician: Generic Doctor Not In System [facility] PROGRESS NOTES DATE 02/24/2017 DISCUSSION Ms. Kyler John is a 51-year-old female, seen on 02/24/2017. The patient interviewed, chart reviewed, and obtained information from the nursing staff. The patient continues to be sad, depressed, withdrawn, isolative, flat affect. The patient's vital signs are 98.8, 74, and 112/80. REVIEW OF SYSTEMS Complete review of systems unremarkable. MENTAL STATUS EXAMINATION General appearance: Patient dressed casually. Attention span and concentration, fair. Oriented in time, place, and person. Mood and affect, labile. Speech, monotone. Thought process, concrete. The patient denied any thoughts of harming self or others but still sad and depressed, withdrawn, isolative. Recent and remote memory, poor. Insight and judgment, poor. DIAGNOSES 1. Mood disorder, NOS. 2. Alcohol use disorder, severe. ASSESSMENT/PLAN Advised to continue with the current medication and therapeutic protocol, and if needed consider further adjustment of medication. Dictated by... Georgette Terrazas/emily TD: 02/25/2017 09:47 JOB #: [id number] Unit #: [id number] #: [id number] Patient: KYLER JOHN [facility] PROGRESS NOTES Page 1 of 1 X Jose Ramon Catalan MD X PROGRESS NOTE
--- NOTE | ~2017-02-21 | PA ---
Unit #: [id number] #: [id number] Patient: KYLER JOHN [id number] [facility] [address] [id number] MR#: [id number] NAME: KYLER JOHN. ROOM: [facility] Age: 51 Sex: F Admission Date: 02/22/2017 : 1965 Date of Assessment: 02/22/2017 Attending Physician: Jose Ramon Catalan M.D. Admitting Physician: Jose Ramon Catalan M.D. Primary Care Physician: Generic Doctor Not In System PSYCHIATRIC ASSESSMENT DATE OF SERVICE 02/22/2017. INFORMANTS The patient's reliability, fair; chart reliability, good. CHIEF COMPLAINT Depression, alcohol abuse. HISTORY OF PRESENT ILLNESS Ms. Kyler John is a 51-year-old female, presented needing detox from alcohol. Reported she drank half a bottle of wine and six 16 ounces beers. The patient reported she drinks 2 bottles of wine daily. The patient reports suicidal ideation with no specific plan. The patient reports she does not want to live anymore and does not have anything to live for. Reports taking Effexor, but is not working. Denied any homicidal ideation. The patient denied use of any other substances. Needing inpatient admission at this time for psychiatric stabilization. PAST PSYCHIATRIC HISTORY [facility]able [facility] in [facility]/2016 before that 09/2016. FAMILY HISTORY AND SOCIAL HISTORY The patient has a good support system from family. Family psychiatric illness is unknown. History of alcohol problem on paternal side of the family. No history of any abuse. MEDICAL HISTORY Remarkable for history of hypertension, atrial fibrillation. MEDICATION HISTORY The patient is on Eliquis, Effexor, Toprol, Celexa, Vistaril. ALLERGIES No known drug allergies. SUBSTANCE ABUSE Alcohol use, age of onset 41, 2 bottles of wine daily. Longest period of sobriety 55 days, last period of sobriety . History of blackout. History of withdrawal symptoms. No history of IV drug use. HIV or hepatitis. The patient complaining of muscle cramping, tremor, headache, muscle cramps, depressed mood, nervousness. Unit #: [id number] #: [id number] Patient: KYLER JOHN REVIEW OF SYSTEMS HEENT: Eyes, clear. Ears, nose, mouth, and throat; clear. CARDIOVASCULAR: Unremarkable. RESPIRATORY: Unremarkable. GI: Unremarkable. : Unremarkable. SKIN: Unremarkable. LYMPH NODE: Unremarkable. NEUROLOGIC: Unremarkable. ENDOCRINE: Unremarkable. HEMATOLOGIC: Unremarkable. ALLERGIC/IMMUNOLOGIC: Unremarkable. MUSCULOSKELETAL: Muscle strength and tone, no atrophy or abnormal movement. Gait normal. MENTAL STATUS EXAMINATION CONSTITUTIONAL: Measurement of vital signs; temperature 98.5, pulse 59, respiratory rate 18, blood pressure 121/54, height 5 feet 6 inches, weight 180 pounds. GENERAL APPEARANCE: The patient dressed casually. The patient's hygiene and grooming, fair. The patient did not show any facial deformity. MUSCULOSKELETAL: Please see above. PSYCHIATRIC EXAMINATION Description of speech; regular rate, normal volume, normal articulation, coherent, and spontaneous. Description of thought process, goal directed. Description of association, intact. Description of abnormal psychotic thinking; the patient denied any thoughts of harming others, but having suicidal ideation, hopelessness, worthlessness, substance abuse. Description of the patient's judgment, concerning everyday activity, poor. Social situation, poor. Concerning psychiatric condition, poor. Complete mental status examination; oriented in time, place, and person. Recent and remote memory, fair. Attention span and concentration, fair. Language, able to name object and repeat phrases. Fund of knowledge, aware of current event and passive vocabulary intact. Mood and affect, sad and dysphoric. Insight and judgment, fair to poor. ASSETS AND LIABILITIES Assets, the patient is articulate and able to take care of her ADL. Liability, history of depression and substance abuse. ADMITTING DIAGNOSES Psychiatric: Major depressive disorder, recurrent, severe, F33.2; alcohol use disorder, severe, F10.20. Secondary diagnosis: Deferred. Medical diagnosis: History of atrial fibrillation, hypertension. Stressors: Psychosocial stressor. PSYCHIATRIC PLAN 1. Advised to admit the patient on the inpatient unit. Provide safe, supportive, and structured environment. 2. Ordered labs; CBC, CMP, UA, and UDS. 3. Detox protocol and detox monitoring. Resume home medication. If Unit #: [id number] #: [id number] Patient: KYLER JOHN needed, consider further adjustment of medication. The patient to attend group therapy, individual therapy, chemical dependency group. Recommending at this time to continue with current medication and add Celexa as a second antidepressant. TREATMENT GOAL To attain euthymic mood, gain insight into her problem, and learn coping skills. DISCHARGE PLAN Plan to stabilize the patient and consider followup in outpatient program. ESTIMATED LENGTH OF STAY 5 days. Dictated by... Georgette Terrazas/nicko TD: 02/23/2017 01:39 JOB #: [id number] PSYCHIATRIC ASSESSMENT Page 1 of 1 X Jose Ramon Catalan MD X PSYCHIATRIC ASSESSMENT
[2017-02-22 14:55] LABS: BASOPHIL% 0.6 % (0-2.5); EOSINOPHIL% 0.7 % (0.0-7.0); HEMATOCRIT 37.3 % (35.0-45.0); HEMOGLOBIN 11.7 gm/dL (12.0-16.0); LYMPHOCYTE# 1.3 X10e3 (1.0-3.5); LYMPHOCYTE% 23.7 % (17.0-45.0); MEAN CELL VOLUME 78.5 FL (83-96); MEAN CORPUSCULAR HEMOGLOBIN 24.6 PG (28-34); MEAN CORPUSCULAR HGB CONC 31.3 g/dL (30-36); MEAN PLATELET VOLUME 8.8 FL (6.5-11.5); MONOCYTE# 0.5 X10e3 (0-1.0); MONOCYTE% 8.4 % (3.0-12.0); NEUTROPHIL# 3.6 X10e3 (1.5-7.1); NEUTROPHIL% 66.6 % (40-75); PLATELET COUNT 239 X10e3 (140-420); RED BLOOD COUNT 4.75 X10e (3.90-5.30); RED CELL DISTRIBUTION WIDTH 18.9 % (11.0-15.5); WHITE BLOOD COUNT 5.5 X10e3 (4.0-10.5)
[2017-02-22 15:06] LABS: DIFF IND NO
[2017-02-22 15:08] LABS: AMPHETAMINE NEG (NEG); BARBITURATES NEG (NEG); BENZODIAZEPINES NEG (NEG); COCAINE NEG (NEG); MARIJUANA NEG (NEG); OPIATES NEG (NEG); TRICYCLIC ANTIDEPRESSANTS NEG (NEG); U METHADONE NEG (NEG)
[2017-02-22 15:30] LABS: ALBUMIN SERUM 3.9 g/dL (3.5-5.0); BILIRUBIN,TOTAL 0.6 mg/dL (0.2-2.0); CALCIUM SERUM 9.3 mg/dL (8.4-10.2); GLOM FILT RATE Estimated 65.2 mL/min (>60); POTASSIUM 5.1 mmol/L (3.5-5.1)
== END 2017-02-27 11:20 | DRG 885 ==
LOC: P2S 02-22 03:38
PROVIDERS: Psychiatry & Neurology Psychiatry
PROC: HZ2ZZZZ Detoxification Services for Substance Abuse Treatment (ICD-10-PCS; principal; 2017-02-22)
DX: F33.2 Major depressive disorder, recurrent severe without psychotic features (principal); I48.91 Unspecified atrial fibrillation; I10 Essential (primary) hypertension; F10.20 Alcohol dependence, uncomplicated; F39 Unspecified mood [affective] disorder
CPT/HCPCS: 80053; 80307; 85025; 86592